=== PATIENT | male | born 1995 | race Caucasian/White ===

== ENCOUNTER → 2021-07-02 | Outpatient (CLI) | payer OTHER ==
[~2021-07-02] MED LIST: CEPH250SUA PO; CODACEE120 PO
[2021-07-02 09:39] LABS: Body Fluid Crystals NEG (NEGATIVE)
== END ==
LOC: LAB SHORT 08:30
PROVIDERS: Family Medicine
DX: M10.9 Gout, unspecified (principal)
CPT/HCPCS: 89060